=== PATIENT | female | born 1955 | race Two or more races ===

== ENCOUNTER 2016-10-19 12:12 | Emergency (ER) | payer SELFPAY ==
[~2016-10-19] VITALS: Ht 157.5 cm; Wt 90.7 kg
[2016-10-19] MEDS ORDERED: cloNIDine HCL 0.1 MG TAB ONE (12:24)
[2016-10-19] MEDS ORDERED: cloNIDine HCL 0.1 MG TAB PO ONE (12:30)
[2016-10-19 15:07] VITALS: BP 118/83
== END 2016-10-19 16:28 | disposition home or self-care (01) ==
LOC: ER 12:21
DX: E03.9 Hypothyroidism, unspecified (principal); Z76.0 Encounter for issue of repeat prescription; I10 Essential (primary) hypertension

== ENCOUNTER 2017-11-21 18:18 | Emergency (ER) | payer MEDICAID ==
[~2017-11-21] VITALS: Ht 157.5 cm; Wt 101.2 kg
[2017-11-21] MEDS ORDERED: SILVER SULFADIAZINE 1 % TOPICAL CREAM 50GM TOP ONE (19:01)
[2017-11-21 19:08] LABS: Eosinophils # (auto) 0.1 uL; Monocytes # (auto) 0.4 uL; Neutrophils # (auto) 3.8 uL; Nucleated Red Blood Cells % 0.1 %
[2017-11-21 19:10] LABS: Basophils # (auto) 0 uL; Basophils % (auto) 0.7 % (0.0-2.0); Eosinophils % (auto) 1.2 % (0.0-7.0); Hematocrit 40.7 % (36.0-46.0); Hemoglobin 13.7 g/dL (12.2-16.2); Lymphocytes % (auto) 31.9 % (10.0-50.0); Mean Corpuscular Hemoglobin 26.8 pg (28.0-32.0); Mean Corpuscular Hgb Conc. 33.6 g/dL (32.0-36.0); Mean Corpuscular Volume 79.8 fL (80.0-100.0); Monocytes % (auto) 6.4 % (0.0-12.0); Neutrophils % (auto) 59.8 % (37.0-80.0); Platelet Count (auto) 228 10^3/uL (140-450); Red Cell Distribution Width 14.2 % (11.8-14.3); White Blood Cell 6.4 10^3/uL (4.4-10.8)
[2017-11-21 19:21] LABS: Urine Bacteria NONE SEEN /hpf (None Seen); Urine Blood TRACE /uL (Negative); Urine Specific Gravity 1.007 (1.001-1.035); Urine WBC <1 /hpf (0 - 5)
[2017-11-21 19:23] LABS: Albumin 4.1 g/dL (3.4-5.0); BUN/Creatinine Ratio 14.1; Bilirubin, Total 0.5 mg/dL (0.2-1.0); Calcium 8.6 mg/dL (8.5-10.1); Potassium 3.8 mmol/L (3.5-5.1); Total Protein 7.8 g/dL (6.4-8.2)
[2017-11-22] LABS: INR 0.99 (0.9-1.15); Magnesium 1.9 mg/dL (1.6-2.6); Partial Thromboplastin Time 27.2 sec (22.64-33.71); Prothrombin Time 10.8 sec (9.37-12.3)
[2017-11-22] MEDS ORDERED: amLODIPine BESYLATE 5 MG TAB PO ONE (01:45)
[2017-11-22 02:34] VITALS: BP 153/94
== END 2017-11-22 02:35 | disposition home or self-care (01) ==
LOC: ER 18:24
DX: K58.9 Irritable bowel syndrome, unspecified (principal); R10.31 Right lower quadrant pain; I10 Essential (primary) hypertension; Z90.89 Acquired absence of other organs
CPT/HCPCS: 36415; 74176; 80053; 81001; 82150; 83690; 83735; 85025; 85610; 85730; 93005; 94761